=== PATIENT | female | born 1990 | race Two or more races ===

== ENCOUNTER 2016-11-02 10:38 | Emergency (ER) | payer OTHER ==
[~2016-11-02] VITALS: Ht 172.7 cm; Wt 75.3 kg
[2016-11-02 11:18] VITALS: BP 122/75
--- NOTE | 2016-11-02 11:21 | NUR ---
Patient ambulated to bed 05.
--- NOTE | 2016-11-02 11:22 | NUR ---
26/F BIB FOR EVALUATION OF VAGINAL BLEEDING DURING X3 DAYS. LMP 09/23/16.PT STATED HAS HEADACHE,LOWER ABDOMINAL PAIN & REDIATING TO LOWER BACK, NAUSEA BUT DENIES V/D AT THIS TIME; SKIN IS PINK/WARM/DRY; AAOX4 WITH EVEN AND STEADY GAIT; LUNGS CLEAR BL; HR EVEN AND REGULAR; PT DENIES ANY FEVER, CP, SOB, OR COUGH AT THIS TIME; PATIENT STATES PAIN OF 8/10 AT THIS TIME; VSS; PATIENT POSITIONED FOR COMFORT; HOB ELEVATED; BEDRAILS UP X2; BED DOWN. ER MD MADE AWARE OF PT STATUS.
--- NOTE | 2016-11-02 11:30 | NUR ---
LAB AT BEDSIDE
--- NOTE | 2016-11-02 11:34 | NUR ---
US AT BEDSIDE
[2016-11-02 11:47] LABS: BASOPHILS # (AUTO) 0.1 K/uL (0.00-0.22); BASOPHILS % (AUTO) 1.7 % (0.0-2.0); EOSINOPHILS # (AUTO) 0.2 K/uL (0-0.4); EOSINOPHILS % (AUTO) 2.2 % (0.0-4.0); HEMATOCRIT 41.8 % (36-48); HEMOGLOBIN 14.3 g/dL (12.0-16.0); LYMPHOCYTES # (AUTO) 1.8 K/uL (2.5-16.5); LYMPHOCYTES % (AUTO) 24.9 % (20.5-51.1); MEAN CORPUSCULAR HEMOGLOBIN 30 pg (27-31); MEAN CORPUSCULAR HGB CONC 34 g/dL (33-37); MEAN CORPUSCULAR VOLUME 88 fL (80-94); MONOCYTES # (AUTO) 0.5 K/uL (0.8-1.0); MONOCYTES % (AUTO) 6.8 % (1.7-9.3); NEUTROPHILS # (AUTO) 4.5 K/uL (1.8-7.7); NEUTROPHILS % (AUTO) 64.4 % (42.2-75.2); PLATELET COUNT (AUTO) 199 K/uL (140-450); RED BLOOD CELL COUNT(AUTO) 4.74 MIL/uL (4.20-5.40); RED CELL DISTRIBUTION WIDTH 11.6 % (11.6-13.7); WHITE BLOOD COUNT (AUTO) 7.1 K/uL (4.8-10.8)
--- NOTE | 2016-11-02 11:55 | NUR ---
PELVIC EXAM DONE BY ER MD DR BOLES. PT TOLERATED PROCEDURE WELL, SENT SPECIMEN TO LAB
--- NOTE | 2016-11-02 12:00 | NUR ---
Patient appears to be resting comfortably in bed. Vital Signs within normal limits. Respirations even and unlabored.WILL CONTINUE TO MONITOR.
[2016-11-02 12:01] LABS: BILIRUBIN,URINE NEGATIVE (NEGATIVE); BLOOD, URINE 3+ (NEGATIVE); COLOR,URINE YELLOW (YELLOW); LEUKOCYTE ESTERASE ,URINE NEGATIVE (NEGATIVE); NITRITE, URINE NEGATIVE (NEGATIVE); PH,URINE 5.5 (5.0-9.0); PROTEIN,URINE NEGATIVE (NEGATIVE); UGLUCOSE NEGATIVE (NEGATIVE); UROBILINOGEN,URINE 0.2 EU/dL (0.2 - 1)
[2016-11-02 13:01] LABS: APPEARANCE,URINE HAZY (CLEAR); BACTERIA,URINE None Seen /HPF (None Seen); RBC,URINE TOO NUMEROUS TO COUN /HPF (0-5); SQUAMOUS EPITHELIAL CELL,UR 0-3 (FEW) /LPF (0-3 (FEW)); WBC,URINE 0-5 (RARE) /HPF (0-5)
[2016-11-02] MEDS ORDERED: ACETAMINOPHEN EXTRA STRENGTH 500 MG TAB PO ONE (13:10)
[2016-11-02 13:37] VITALS: BP 111/64
[2016-11-02] MEDS ORDERED: PENICILLIN G BENZATHINE L-A 2.4 MU/4 ML SYR IM ONE (17:25)
[2016-11-04 15:27] LABS: CHLAMYDIA TRACHOMATIS AMP DNA Negative (Negative)
== END 2016-11-02 13:38 | disposition home or self-care (01) ==
LOC: MED 10:38
DX: O20.9 Hemorrhage in early pregnancy, unspecified (principal); O99.511 Diseases of the respiratory system complicating pregnancy, first trimester
CPT/HCPCS: 36415; 76801; 76817; 81001; 84702; 85025; 86900; 86901; 87070; 87081; 87205; 87210; 87491; 87804; 96372; 99285; Q0092

== ENCOUNTER 2022-08-07 11:55 | Emergency (ER) | payer OTHER ==
[~2022-08-07] VITALS: Ht 165.1 cm; Wt 81.6 kg
[2022-08-07 12:17] VITALS: BP 101/60
--- NOTE | 2022-08-07 12:22 | NUR ---
32 Y/O FEMALE BIB SPOUSE FROM HOME, C/O COUGH, CONGESTION, "WEIRD SOUND COMING FROM CHEST", AND CHEST/THROAT PAIN WITH COUGH EXERTION FOR 4 DAYS. STATES HER DAUGHTER WAS SICK WITH FLU LIKE SYMPTOMS AT HOME PREVIOUSLY AND THEN STARTED HAVING SIMILIAR S/S. 4/10 PAIN AT THIS TIME. PT A&OX4, KYRGYZ SPEAKING, AMBULATES WITH STEADY GAIT. LUNG SOUNDS CRACKLES IN BL LOBES. PMH: JOSSELYN BULLOCK KYRGYZ SPEAKER PETERE: KUN #[id number]
--- NOTE | 2022-08-07 12:23 | NUR ---
recived in bed 2 for cough, congestion, wheesing x 4 days. + cough. rales upon uscultation , tested neg covid @ home. exposed to sick daughter @ home. denies chest pain, n,v,d,fever, chill, sob. spo2 94 % ra. aao x4. resp even and nonlabored. ambulatory
[2022-08-07] MEDS ORDERED: PROMETHAZINE DM 6.25/15MG-5ML ORASYR PO PRN (12:35)
--- NOTE | 2022-08-07 12:58 | NUR ---
PT TAKEN TO XRAY VIA WHEELCHAIR
--- NOTE | 2022-08-07 13:19 | NUR ---
medicated as ordered. aao x4. resp even and nonlabored. pending results
[2022-08-07] MEDS ORDERED: SUD30 PO (13:44)
[2022-08-07] MEDS ORDERED: LIDO15SO PO (13:44)
[2022-08-07] MEDS ORDERED: PROM118S5 PO (13:44)
[2022-08-07] MEDS ORDERED: AZIT250T4 PO (13:44)
[2022-08-07 14:03] VITALS: BP 128/74
== END 2022-08-07 14:03 | disposition home or self-care (01) ==
LOC: MED 11:55
DX: J18.9 Pneumonia, unspecified organism (principal); J02.0 Streptococcal pharyngitis; J32.9 Chronic sinusitis, unspecified; Z79.899 Other long term (current) drug therapy
CPT/HCPCS: 71046; 99283